=== PATIENT | male | born 1960 | race Caucasian/White ===

== ENCOUNTER → 2016-05-31 23:06 | Emergency (ER) | payer MEDICARE, OTHER ==
[~2016-05-31 23:06] MED LIST: ASPIRIN81 M2 PO; ATENOLOL25 MG PO; ATORVASTATIN CA80 MG PO; CARDIZEM30 M1 PO; CHOLESTEROL MED; DESYREL300 MG PO; DIVALPROEX SOD500 M1 PO; DIVALPROEX SOD500 M2 PO; ELIQUIS5 MG PO; FLAGYL PO; HYDROCODON-ACE1 EAC9 PO; LEVAQUIN PO; LISINOPRIL PO; LISINOPRIL20 MG PO; LOPRESSOR PO; LORTAB 5-325 M1 EACH PO; MELATIN3 MG PO; METOPROLOL TAR25 MG PO; NITROSTAT0.4 MG SL; PANTOPRAZOLE SO40 MG PO; PERCOCET 10/3251 TAB PO; PLAVIX PO; PRINIVIL20 M1 PO; SERTRALINE HCL100 M1 PO; TRAZODONE PO; VISTARIL50 MG PO; VITAMIN D350000 UNIT PO; ZOLOFT PO
== END | disposition home or self-care (01) ==
LOC: CED 23:06
DX: M25.461 Effusion, right knee (principal); I25.2 Old myocardial infarction; I10 Essential (primary) hypertension; Z98.890 Other specified postprocedural states; Z88.8 Allergy status to other drugs, medicaments and biological substances
CPT/HCPCS: 99283

== ENCOUNTER 2016-06-12 19:49 | Emergency (ER) | payer MEDICARE ==
--- NOTE | ~2016-06-12 | CR170 ---
[facility] A Service of [facility] & [facility] RADIOLOGY TEXT RESULTS PATIENT: TACHO TORO LOCATION: [facility] : [birth year] UNIT #: [id number] AGE: [address]: Ernesto Preez SEX: M ORDER DR: [id number] [facility] [address]. [place], [place] [address] [id number] E MR#: [id number] Acc #: [id number] NAME: TACHO TORO : 08/08/1950 SEX: M STUDY DATE/TIME: 06/12/2016 20:08 UNIT: [facility] ROOM: STUDY DESCRIPTION: CR Knee 2 Views Rt Attending Physician: Ernesto Perez P.A.-C. Ordering Physician: Ernesto Perez P.A.-C. Primary Care Physician: Primary Care Physician No MEDICAL IMAGING REPORT This report is preliminary unless electronic signature is present EXAM Right knee 3 views HISTORY Knee pain and swelling after fall yesterday. FINDINGS 3 views of the right knee demonstrate normal bone alignment. Postop changes of total knee arthroplasty with patellar resurfacing. Very small suprapatellar effusion. The prosthetic components appear in satisfactory position. IMPRESSION 1. Small suprapatellar effusion. 2. Total knee arthroplasty components are in satisfactory position. Dictated by... Christiano Amin M.D. THIS IS AN ELECTRONICALLY VERIFIED REPORT Christiano Amin M.D. at 06/13/2016 11:06 AM TAMY/sonny TD: 06/13/2016 07:53 JOB #: [id number] MEDICAL IMAGING REPORT Page 1 of 1 COPY
[~2016-06-12 19:49] MED LIST changes: -CARDIZEM30 M1 PO; -DESYREL300 MG PO; -DIVALPROEX SOD500 M2 PO; -LORTAB 5-325 M1 EACH PO; -MELATIN3 MG PO; -PRINIVIL20 M1 PO
[2016-11-20] MEDS ORDERED: ELIQUIS5 MG PO (10:40)
[2016-11-20] MEDS ORDERED: CARDIZEM30 M1 PO (10:41)
[2016-11-20] MEDS ORDERED: DESYREL300 MG PO (10:41)
[2016-11-20] MEDS ORDERED: DIVALPROEX SOD500 M2 PO (10:42)
[2016-11-20] MEDS ORDERED: PRINIVIL20 M1 PO (10:43)
[2016-11-20] MEDS ORDERED: PANTOPRAZOLE SO40 MG PO (10:44)
[2016-11-20] MEDS ORDERED: MELATIN3 MG PO (10:44)
[2016-11-21] MEDS ORDERED: LEVAQUIN PO (10:18)
[2016-11-21] MEDS ORDERED: FLAGYL PO (10:19)
[2016-11-21] MEDS ORDERED: LORTAB 5-325 M1 EACH PO (10:19)
== END 2016-06-12 21:45 | disposition home or self-care (01) ==
LOC: CFTX 19:49
DX: M25.561 Pain in right knee (principal); I25.2 Old myocardial infarction; I48.91 Unspecified atrial fibrillation; E78.5 Hyperlipidemia, unspecified; I10 Essential (primary) hypertension; Z88.8 Allergy status to other drugs, medicaments and biological substances
CPT/HCPCS: 29505; 73560; 99283

== ENCOUNTER 2016-06-22 22:19 | Emergency (ER) | payer MEDICARE, OTHER ==
[2016-11-20] MEDS ORDERED: ELIQUIS5 MG PO (10:40)
[2016-11-20] MEDS ORDERED: DESYREL300 MG PO (10:41)
[2016-11-20] MEDS ORDERED: CARDIZEM30 M1 PO (10:41)
[2016-11-20] MEDS ORDERED: DIVALPROEX SOD500 M2 PO (10:42)
[2016-11-20] MEDS ORDERED: PRINIVIL20 M1 PO (10:43)
[2016-11-20] MEDS ORDERED: MELATIN3 MG PO (10:44)
[2016-11-20] MEDS ORDERED: PANTOPRAZOLE SO40 MG PO (10:44)
[2016-11-21] MEDS ORDERED: LEVAQUIN PO (10:18)
[2016-11-21] MEDS ORDERED: LORTAB 5-325 M1 EACH PO (10:19)
[2016-11-21] MEDS ORDERED: FLAGYL PO (10:19)
== END 2016-06-22 23:12 | disposition home or self-care (01) ==
LOC: CED 22:19
DX: G89.29 Other chronic pain (principal); M25.561 Pain in right knee; I48.91 Unspecified atrial fibrillation; F43.10 Post-traumatic stress disorder, unspecified; E78.5 Hyperlipidemia, unspecified; I25.10 Atherosclerotic heart disease of native coronary artery without angina pectoris; I10 Essential (primary) hypertension; K92.2 Gastrointestinal hemorrhage, unspecified; Z88.5 Allergy status to narcotic agent
CPT/HCPCS: 99283

== ENCOUNTER 2016-11-09 15:30 | Emergency (ER) | payer MEDICARE, OTHER ==
[~2016-11-09] VITALS: Ht 198.1 cm; Wt 147.9 kg
--- NOTE | ~2016-11-09 | CR253 ---
[facility] A Service of [facility] & [facility] RADIOLOGY TEXT RESULTS PATIENT: TACHO TORO LOCATION: [facility] : [birth year] UNIT #: [id number] AGE: [address]: Peg Means MD SEX: M ORDER DR: [id number] [id number] [facility]. [place], [place] [address] [id number] E MR#: [id number] Acc #: [id number] NAME: TACHO TORO : 08/08/1950 SEX: M STUDY DATE/TIME: 11/09/2016 16:34 UNIT: [facility] ROOM: STUDY DESCRIPTION: CR Tibia and Fibula 2 Views Rt Attending Physician: Peg Means M.D. Ordering Physician: Peg Means M.D. Primary Care Physician: No Primary Care Physician MEDICAL IMAGING REPORT This report is preliminary unless electronic signature is present EXAM Right lower leg. HISTORY 66-year-old male fell, complains of right knee pain and swelling. COMPARISON Right knee films, 03/07/2016. Right knee films, 06/12/2016. FINDINGS Two views of the right lower leg demonstrates postoperative changes of right total knee arthroplasty. Multiple calcifications are noted about the knee probably postsurgical or dystrophic in nature. The prominent calcifications seen along the medial aspect of the knee could be dystrophic calcifications or less likely the sequela of an old MCL injury. This does not appear changed from prior studies. There is also lucency along the tibial component of the patient's arthroplasty but this also appears stable from previous examinations and no other findings are identified to suggest loosening of the arthroplasty component. No evidence of a lower leg fracture. The ankle joint demonstrates some minimal degenerative changes. Tubular structures along the medial aspect of the lower leg suggest a superficial varicosities. IMPRESSION No acute abnormality. Patient status post right total knee arthroplasty with probable dystrophic calcifications about the knee. This is unchanged from prior studies of 03/07/2016. Dictated by... Kassidy Santiago M.D. THIS IS AN ELECTRONICALLY VERIFIED REPORT Kassidy Santiago M.D. at 11/10/2016 2:33 PM [facility] A Service of [facility] & [facility] RADIOLOGY TEXT RESULTS PATIENT: TACHO TORO [id number] : [birth year] UNIT #: [id number] AGE: [address]: Peg Means MD SEX: M ORDER DR: Giana TD: 11/10/2016 09:56 JOB #: [id number] MEDICAL IMAGING REPORT Page 1 of 1 COPY
--- NOTE | ~2016-11-09 | CR173 ---
[facility] A Service of [facility] & [facility] RADIOLOGY TEXT RESULTS PATIENT: TACHO TORO LOCATION: [facility] : [birth year] UNIT #: [id number] AGE: [address]: Peg Measn MD SEX: M ORDER DR: [id number] [id number] [facility]. [place], [place] [address] [id number] E MR#: [id number] Acc #: [id number] NAME: TACHO TORO : 08/08/1950 SEX: M STUDY DATE/TIME: 11/09/2016 16:37 UNIT: [facility] ROOM: STUDY DESCRIPTION: CR Knee 3 Views Rt Attending Physician: Peg Means M.D. Ordering Physician: Peg Means M.D. Primary Care Physician: No Primary Care Physician MEDICAL IMAGING REPORT This report is preliminary unless electronic signature is present EXAM Right knee, 3 views. HISTORY Right knee swelling and anteriorly right lower leg pain after a fall today. COMPARISON 06/12/2016 and 03/07/2016. FINDINGS Multiple views of the right knee demonstrates no acute fracture or deformity. Patient is status post right total knee arthroplasty. No evidence of a periprosthetic fracture or loosening. Lucency along the tibial component is unchanged from prior studies. Multiple dystrophic calcifications noted about the knee. There may be a minimal amount of joint fluid nonspecific. Dictated by... Kassidy Santiago M.D. THIS IS AN ELECTRONICALLY VERIFIED REPORT Kassidy Santiago M.D. at 11/10/2016 2:33 PM DANIELA/marshall TD: 11/10/2016 11:09 JOB #: [id number] MEDICAL IMAGING REPORT Page 1 of 1 COPY
[2016-11-20] MEDS ORDERED: ELIQUIS5 MG PO (10:40)
[2016-11-20] MEDS ORDERED: CARDIZEM30 M1 PO (10:41)
[2016-11-20] MEDS ORDERED: DESYREL300 MG PO (10:41)
[2016-11-20] MEDS ORDERED: DIVALPROEX SOD500 M2 PO (10:42)
[2016-11-20] MEDS ORDERED: PRINIVIL20 M1 PO (10:43)
[2016-11-20] MEDS ORDERED: MELATIN3 MG PO (10:44)
[2016-11-20] MEDS ORDERED: PANTOPRAZOLE SO40 MG PO (10:44)
[2016-11-21] MEDS ORDERED: LEVAQUIN PO (10:18)
[2016-11-21] MEDS ORDERED: LORTAB 5-325 M1 EACH PO (10:19)
[2016-11-21] MEDS ORDERED: FLAGYL PO (10:19)
== END 2016-11-09 17:55 | disposition home or self-care (01) ==
LOC: CED 15:30 → EDBD 16:20 → CED 16:20
DX: S89.91XA Unspecified injury of right lower leg, initial encounter (principal); I48.91 Unspecified atrial fibrillation; Z88.6 Allergy status to analgesic agent; W18.30XA Fall on same level, unspecified, initial encounter; Y92.009 Unspecified place in unspecified non-institutional (private) residence as the place of occurrence of the external cause
CPT/HCPCS: 73562; 73590; 99283